=== PATIENT | female | born 1980 | race Caucasian/White ===

== ENCOUNTER 2024-06-03 11:30 | Observation (INO) ==
[2024-06-03 11:56] LABS: Basophils # (Auto) 0.03 K/mcL (0.00-0.30); Basophils % (Auto) 0.6 % (0.0-2.0); Eosinophils # (Auto) 0.22 K/mcL (0.00-0.70); Eosinophils % (Auto) 4.2 % (0.0-7.0); Hematocrit 41.3 % (34.1-44.9); Lymphocytes # (Auto) 1.74 K/mcL (1.50-4.80); Lymphocytes % (Auto) 33.1 % (15.5-49.0); Mean Cell Volume 96.5 fL (80.0-100.0); Mean Corpuscular HGB Conc 33.9 g/dL (31.0-36.0); Mean Platelet Volume 8.8 fL (8.8-12.5); Monocytes % (Auto) 5.7 % (1.0-12.0); Neutrophils % (Auto) 56.4 % (38.0-78.0); Platelet Count 292 K/mcL (140-440); RBC 4.28 M/mcL (3.59-5.38); Red Cell Distribution Width 11.4 % (11.5-14.5); WBC 5.3 K/mcL (4.5-11.0)
[2024-06-03] MEDS: HYDROmorphone 1 MG/ML SYRINGE IV ONE ×2 (12:05→13:09)
[2024-06-03] MEDS: ONDANSETRON 4 MG/2 ML VIAL IV ONE (12:05)
[2024-06-03 12:16] LABS: HCG,Serum Negative
[2024-06-03 12:22] LABS: ALT/SGPT 100 U/L (<40); AST/SGOT 30 U/L (<32); Albumin 4.3 gm/dL (3.2-5.2); Albumin/Globulin Ratio 1.4 (1.0-2.3); Alkaline Phosphatase 131 U/L (39-117); Bilirubin,Total 0.4 mg/dL (0.1-1.0); Blood Urea Nitrogen 10 mg/dL (6-20); Calcium 9.9 mg/dL (8.6-10.4); Carbon Dioxide 25 mmol/L (22-30); Chloride 103 mmol/L (96-108); Globulin 3.1 gm/dL (2.2-3.7); Glomerular Filtration Rate 106; Glucose 104 mg/dL (70-105); Potassium 4.4 mmol/L (3.3-5.1); Sodium 139 mmol/L (133-145)
[2024-06-03] MEDS ORDERED: ONDANSETRON 4 MG/2 ML VIAL IV PRN (12:30)
[2024-06-03] MEDS: PIPERACILLIN SODIUM/TAZOBACTAM 3.375 GM in DEXTROSE 5% IN WATER 50 ML IV ONE (12:54)
[2024-06-03 13:03] LABS: Appearance,Urine Clear (Clear); Bilirubin,Urine Negative (Negative); Color,Urine Yellow; Glucose,Urine (UA) Negative (Negative); Ketones,Urine Negative (Negative); Leukocyte Esterase,Urine Negative /uL (Negative); Nitrate,Urine Negative (Negative); Protein,Urine Negative (Negative); Urine Blood Negative ery/mcL (Negative); Urine RBC 0 /hpf (0-3); Urine Squamous Epithelial Cell 0 /hpf (0-4); Urine WBC 0 /hpf (0-4); Urobilinogen,Urine Normal
[2024-06-03 13:04] LABS: Prothrombin Time 13.5 sec (11.9-14.5)
[2024-06-03] MEDS: PIPERACILLIN SODIUM/TAZOBACTAM 3.375 GM in DEXTROSE 5% IN WATER 100 ML IV SCH (14:28)
[2024-06-03] MEDS: HYDROmorphone 1 MG/ML SYRINGE IV PRN (15:04)
[2024-06-03] MEDS: 0.9 % SODIUM CHLORIDE 1,000 ML IV SCH (15:05)
[2024-06-03] MEDS: 0.9 % SODIUM CHLORIDE 10 ML SYRINGE IV SCH (15:06)
[2024-06-03] MEDS: ONDANSETRON 4 MG/2 ML VIAL IV PRN (15:11)
[2024-06-03] MEDS: oxyCODONE IR 5 MG TABLET PO PRN (17:13)
[2024-06-03] MEDS: clonazePAM 0.5 MG TABLET PO PRN (19:37)
[2024-06-03] MEDS: NON FORMULARY MEDICATION 1 DOSE MISCELL (Duloxetine 60 mg capsule,delayed release(DR/EC)) PO SCH (19:38)
[2024-06-03] MEDS: ESTRADIOL 1 MG TABLET PO SCH ×2 (19:39→20:11)
[2024-06-03] MEDS: DOCUSATE SODIUM 100 MG CAPSULE PO SCH (19:40)
[2024-06-03] MEDS: SENNOSIDES 1 TABLET PO SCH (19:40)
[2024-06-03] MEDS: DULoxetine 30 MG CAPSULE PO SCH (20:10)
[2024-06-03] MEDS: MUPIROCIN OINT 2% 22GM NARES SCH (21:10)
[2024-06-03] MEDS: diphenhydrAMINE 25 MG CAPSULE PO PRN (21:15)
[2024-06-03] MEDS: METHOCARBAMOL 750 MG TABLET PO PRN (23:53)
[2024-06-04] MEDS: BUTALB/ACETAMINOPHEN/CAFFEINE 1 TABLET PO PRN (10:11)
[2024-06-04] MEDS: PROMETHAZINE 50 MG/ML AMPUL IM ONE (15:33)
[2024-06-05] MEDS ORDERED: PROPOFOL 200 MG/20 ML VIAL IV ONE (07:18)
[2024-06-05] MEDS ORDERED: fentaNYL 100 MCG/2 ML VIAL ONE (07:18)
[2024-06-05] MEDS ORDERED: SUGAMMADEX SODIUM 200 MG/2 ML VIAL IV ONE (07:18)
[2024-06-05] MEDS ORDERED: KETAMINE 50 MG/ML Syringe IV ONE (07:20)
[2024-06-05] MEDS ORDERED: MAGNESIUM SULFATE 2 GM/50 ML BAG IV ONE (07:23)
[2024-06-05] MEDS ORDERED: DEXAMETHASONE 10 MG/ML VIAL ONE (07:23)
[2024-06-05] MEDS ORDERED: ROCURONIUM 10 MG/ML ML IV ONE (07:23)
[2024-06-05] MEDS ORDERED: ONDANSETRON 4 MG/2 ML VIAL ONE (07:23)
[2024-06-05] MEDS ORDERED: LIDOCAINE 2% PF 5 ML VIAL ONE (07:23)
[2024-06-05] MEDS ORDERED: diphenhydrAMINE 50 MG/ML VIAL IV PRN (08:12)
[2024-06-05] MEDS ORDERED: NALOXONE HCL 0.4 MG/ML VIAL IV PRN (08:12)
[2024-06-05] MEDS ORDERED: IPRATROPIUM/ALBUTEROL 3 ML AMPUL.NEB NEB PRN (08:12)
[2024-06-05] MEDS ORDERED: LACTATED RINGERS 250 ML IV PRN (08:12)
[2024-06-05] MEDS ORDERED: MEPERIDINE 25 MG/ML VIAL IV PRN (08:12)
[2024-06-05] MEDS ORDERED: ONDANSETRON 4 MG/2 ML VIAL IV PRN (08:12)
[2024-06-05] MEDS ORDERED: oxyCODONE IR 5 MG TABLET PO PRN (08:30)
[2024-06-05] MEDS ORDERED: ACETAMINOPHEN 1,000 MG/100 ML BAG IV SCH ×2 (09:00→15:00)
[2024-06-05] MEDS: METHOCARBAMOL 1,000 MG/10 ML VIAL IV PRN (09:03)
[2024-06-05] MEDS: ACETAMINOPHEN 1,000 MG/100 ML BAG IV ONE (09:04)
[2024-06-05] MEDS: fentaNYL 100 MCG/2 ML VIAL IV PRN (09:12)
[2024-06-05] MEDS: KETOROLAC 30 MG/ML VIAL IV PRN (09:19)
[2024-06-05] MEDS: HYDROmorphone 0.5 MG/0.5 ML SYRINGE IV PRN (09:22)
[2024-06-05] MEDS: LACTATED RINGERS 1,000 ML IV SCH (10:26)
[2024-06-05] MEDS: 0.9 % SODIUM CHLORIDE 10 ML SYRINGE IV SCH (14:12)
[2024-06-06 06:40] LABS: Basophils # (Auto) 0.01 K/mcL (0.00-0.30); Basophils % (Auto) 0.1 % (0.0-2.0); Eosinophils # (Auto) 0 K/mcL (0.00-0.70); Eosinophils % (Auto) 0 % (0.0-7.0); Hematocrit 37.1 % (34.1-44.9); Hemoglobin 12.7 g/dL (11.2-15.7); Lymphocytes # (Auto) 1.32 K/mcL (1.50-4.80); Lymphocytes % (Auto) 14.7 % (15.5-49.0); Mean Cell Volume 96.1 fL (80.0-100.0); Mean Corpuscular HGB Conc 34.2 g/dL (31.0-36.0); Mean Platelet Volume 9.3 fL (8.8-12.5); Monocytes # (Auto) 0.62 K/mcL (0.10-0.90); Monocytes % (Auto) 6.9 % (1.0-12.0); Neutrophils % (Auto) 78.2 % (38.0-78.0); Platelet Count 304 K/mcL (140-440); RBC 3.86 M/mcL (3.59-5.38); Red Cell Distribution Width 11.4 % (11.5-14.5)
[2024-06-06 07:31] LABS: ALT/SGPT 98 U/L (<40); AST/SGOT 109 U/L (<32); Albumin 4.2 gm/dL (3.2-5.2); Albumin/Globulin Ratio 1.4 (1.0-2.3); Alkaline Phosphatase 128 U/L (39-117); Bilirubin,Direct 0.3 mg/dL (<0.3); Bilirubin,Total 0.7 mg/dL (0.1-1.0); Blood Urea Nitrogen 3 mg/dL (6-20); Calcium 9.4 mg/dL (8.6-10.4); Carbon Dioxide 27 mmol/L (22-30); Chloride 103 mmol/L (96-108); Globulin 2.9 gm/dL (2.2-3.7); Glomerular Filtration Rate 106; Glucose 105 mg/dL (70-105); Lactate Dehydrogenase 208 U/L (135-225); Phosphorous 2.4 mg/dL (2.5-4.5); Potassium 4.3 mmol/L (3.3-5.1); Sodium 139 mmol/L (133-145); Triglycerides 186 mg/dL (<150); Uric Acid 1.8 mg/dL (2.5-8.0)
[2024-06-06] MEDS ORDERED: fentaNYL 100 MCG/2 ML VIAL IV PRN (12:12)
== END 2024-06-06 15:30 | disposition home or self-care (01) ==
LOC: ED 11:30 → INTOOBSV 13:20 → MEDSUR 13:20
PROVIDERS: ADMIT Family Medicine Adult Medicine; ATTEND Family Medicine Adult Medicine